=== PATIENT | female | born 1975 | race African-American/Black ===

== ENCOUNTER 2018-06-21 15:29 | Emergency (ER) | payer SELFPAY ==
[~2018-06-21] VITALS: Ht 165.1 cm; Wt 75.0 kg
[2018-06-21 17:36] LABS: CLARITY URINE CLOUDY (CLEAR); COLOR URINE YELLOW (YELLOW); KETONES URINE NEGATIVE (NEGATIVE); LEUKOCYTE ESTERASE URINE NEGATIVE (NEGATIVE); NITRITE URINE NEGATIVE (NEGATIVE); OCCULT BLOOD URINE NEGATIVE (NEGATIVE); PH URINE 8.5 (4.5-8.0); PROTEIN URINE NEGATIVE (NEGATIVE); SPECIFIC GRAVITY URINE 1.013 (1.005-1.030); UROBILINOGEN URINE 0.2 E.U./dL (0.2-1.0)
[2018-06-21] MEDS ORDERED: KETOROLAC 30MG/ML VIAL IV ONE (22:45)
[2018-06-21 23:07] LABS: HEMATOCRIT 39.4 % (36.0-48.0); HEMOGLOBIN 12.9 g/dL (12.0-16.0); MEAN CORPUSCULAR HEMOGLOBIN 30.7 pg (28.0-32.0); MEAN CORPUSCULAR VOLUME 93.4 fL (81.0-99.0); PLATELET 240 x1000/uL (130-400); RED BLOOD CELL COUNT 4.22 mill/uL (4.2-5.4); RED CELL DISTRIBUTION WIDTH 13.3 % (11.6-14.6)
[2018-06-21 23:13] LABS: CHLORIDE 105 mEq/L (98-107)
[2018-06-22] MEDS ORDERED: IOHEXOL-300 100 ML BOTTLE ONE (00:06)
[2018-06-22 01:44] VITALS: BP 121/78
== END 2018-06-22 01:44 | disposition home or self-care (01) ==
LOC: EDBD 15:29 → ER 15:29
DX: R10.12 Left upper quadrant pain (principal); Z98.890 Other specified postprocedural states
CPT/HCPCS: 36415; 74177; 80053; 81003; 81025; 83690; 85027; 96374; 99284; J1885